=== PATIENT | male | born 1965 | race American Indian/Alaskan Native ===

== ENCOUNTER 2017-03-19 16:44 | Emergency (ER) | payer BC, OTHER ==
[2017-03-19 17:07] VITALS: BP 162/94; PULSE 94; TEMP 98.1; BMI 23.9
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
== END 2017-03-19 18:48 | disposition home or self-care (01) ==
LOC: JER 16:44
DX: M25.552 Pain in left hip (principal); M25.551 Pain in right hip; Z96.641 Presence of right artificial hip joint; V53.5XXA Driver of pick-up truck or van injured in collision with car, pick-up truck or van in traffic accident, initial encounter; Y92.488 Other paved roadways as the place of occurrence of the external cause; Y93.89 Activity, other specified
CPT/HCPCS: 73523-TC; 99281-25

== ENCOUNTER 2020-12-19 13:14 | Emergency (ER) | payer BC ==
[2020-12-19 13:24] VITALS: BP 118/73; PULSE 86; TEMP 97.9; BMI 22.9
[2020-12-19] MEDS ORDERED: ONDANSETRON *ODT* 4 MG TABLET SL ONE (14:23)
[2020-12-19 16:10] LABS: BASO % 0.2 % (0-2.0); HEMATOCRIT 48.1 % (35.4-49); HEMOGLOBIN 16.6 GM/dL (11.7-16.9); LYMPH % 10.3 % (8-40); MCH 31.1 pg (25.7-33.7); MCHC 34.5 g/dl (32.0-35.9); MEAN CELL VOLUME 90.3 fl (80-96); MEAN PLT VOLUME 8.1 fl (7.5-11.1); MONO % 10.3 % (3.8-10.2); NEUT % 79.2 % (42.8-82.8); PLATELET COUNT 203 K/MM3 (134-434); RBC 5.33 M/mm3 (4.00-5.60); RDW 12.8 % (11.9-15.9); WHITE BLOOD COUNT 5.1 K/mm3 (4.0-10.0)
[2020-12-19 16:29] LABS: POTASSIUM 4.1 mmol/L (3.5-5.1)
[2020-12-19 16:31] LABS: CALCIUM 8.8 mg/dL (8.5-10.1)
[2020-12-19 16:32] LABS: BLOOD UREA NITROGEN 14.4 mg/dL (7-18); MAGNESIUM 2.1 mg/dL (1.8-2.4)
[2020-12-19 16:37] LABS: BILIRUBIN,TOTAL 0.4 mg/dL (0.2-1); TOT PROT 8.2 g/dl (6.4-8.2)
== END 2020-12-19 16:16 | disposition home or self-care (01) ==
LOC: JER 13:14
DX: U07.1 COVID-19 (principal)
CPT/HCPCS: 36415; 71046-TC-FY; 80053; 82728; 83615; 83735; 85025; 85379; 85384; 86140; 99284-25

== ENCOUNTER 2020-12-23 16:41 | Inpatient (IN) | payer BC ==
[2020-12-23] MEDS ORDERED: SODIUM CHLORIDE 0.9% 500 ML INFUS.BAG IV ONE (18:09)
[2020-12-23] MEDS ORDERED: DEXAMETHASONE SOD PHOSPHATE 4 MG/1 ML VIAL IVPUSH ONE (18:27)
[2020-12-23] MEDS ORDERED: DEXAMETHASONE SOD PHOSPHATE 4 MG/1 ML VIAL ONE (18:58)
[2020-12-23 19:27] LABS: BASO % 0.2 % (0-2.0); HEMATOCRIT 43.1 % (35.4-49); HEMOGLOBIN 14.8 GM/dL (11.7-16.9); LYMPH % 3.1 % (8-40); MCH 31.3 pg (25.7-33.7); MCHC 34.5 g/dl (32.0-35.9); MEAN CELL VOLUME 90.8 fl (80-96); MEAN PLT VOLUME 8.2 fl (7.5-11.1); MONO % 6.4 % (3.8-10.2); NEUT % 90.3 % (42.8-82.8); PLATELET COUNT 316 K/MM3 (134-434); RBC 4.75 M/mm3 (4.00-5.60); RDW 12.7 % (11.9-15.9); WHITE BLOOD COUNT 6.9 K/mm3 (4.0-10.0)
[2020-12-23 19:44] LABS: CHLORIDE 102 mmol/L (98-107); POTASSIUM 4.4 mmol/L (3.5-5.1); SODIUM 139 mmol/L (136-145)
[2020-12-23 19:46] LABS: ALBUMIN 3.1 g/dl (3.4-5.0); ANION GAP 5 MMOL/L (8-16); CALCIUM 8.3 mg/dL (8.5-10.1); CO2 31 mmol/L (21-32); GLUCOSE,RANDOM 147 mg/dL (74-106)
[2020-12-23 19:49] LABS: BILIRUBIN,DIRECT 0.3 mg/dL (0.0-0.2); CREATININE 0.8 mg/dL (0.55-1.3); SGOT/AST 26 U/L (15-37); SGPT/ALT 79 U/L (13-61)
[2020-12-23 19:51] LABS: BILIRUBIN,TOTAL 0.5 mg/dL (0.2-1); TOT PROT 7.1 g/dl (6.4-8.2)
[2020-12-23 19:52] LABS: ALK PHOS 76 U/L (45-117)
[2020-12-23 20:17] LABS: LDH 319 U/L (87-246)
[2020-12-23 20:50] LABS: VENOUS PCO2 43.8 mmHg (38-52); VENOUS PH 7.485 (7.310-7.410)
[2020-12-23 20:55] LABS: VENOUS BASE EXCESS 5.1 mmol/L (-2-2); VENOUS O2 SATURATION 75.7 % (70-80)
[2020-12-23] MEDS ORDERED: ALBUTEROL SO4 HFA INHALER IH PRN (21:03)
[2020-12-23 23:11] LABS: MAGNESIUM 2.2 mg/dL (1.8-2.4)
[2020-12-24 02:16] VITALS: BMI 21.8
[2020-12-24 06:19] LABS: URINE APPEARANCE CLEAR; URINE BILIRUBIN NEGATIVE (NEGATIVE); URINE COLOR YELLOW; URINE GLUCOSE (UA) NEGATIVE (NEGATIVE); URINE KETONE NEGATIVE (NEGATIVE); URINE LEUK ESTERASE NEGATIVE (NEGATIVE); URINE NITRITE NEGATIVE (NEGATIVE); URINE PROTEIN NEGATIVE (NEGATIVE)
[2020-12-24 08:21] LABS: BASO % 0.1 % (0-2.0); HEMATOCRIT 42.5 % (35.4-49); HEMOGLOBIN 14.7 GM/dL (11.7-16.9); LYMPH % 9.9 % (8-40); MCH 31.1 pg (25.7-33.7); MCHC 34.7 g/dl (32.0-35.9); MEAN CELL VOLUME 89.6 fl (80-96); MEAN PLT VOLUME 8.1 fl (7.5-11.1); MONO % 10.8 % (3.8-10.2); NEUT % 79.2 % (42.8-82.8); PLATELET COUNT 328 K/MM3 (134-434); RBC 4.74 M/mm3 (4.00-5.60); RDW 12.3 % (11.9-15.9); WHITE BLOOD COUNT 4.7 K/mm3 (4.0-10.0)
[2020-12-24 08:51] LABS: POTASSIUM 4.5 mmol/L (3.5-5.1)
[2020-12-24 08:54] LABS: CALCIUM 8.6 mg/dL (8.5-10.1)
[2020-12-24 08:55] LABS: BLOOD UREA NITROGEN 18.3 mg/dL (7-18)
[2020-12-24 08:58] LABS: CREATININE 0.7 mg/dL (0.55-1.3)
[2020-12-24 09:00] LABS: BILIRUBIN,TOTAL 0.7 mg/dL (0.2-1); TOT PROT 6.9 g/dl (6.4-8.2)
[2020-12-24] MEDS: ENOXAPARIN NA (PORCINE) 40 MG/0.4 ML DISP.SYRIN SQ SCH ×2 (09:41→21:20)
[2020-12-24] MEDS: ZINC SULFATE 220 MG CAPSULE (FP) PO SCH (09:41)
[2020-12-24] MEDS: ASCORBIC ACID 500 MG TABLET (FP) PO SCH ×2 (09:41→21:21)
[2020-12-24] MEDS: CHOLECALCIFEROL (VIT D3) 1,000 UNIT (25 MCG) TABLET PO SCH (09:41)
[2020-12-24] MEDS: DEXAMETHASONE SOD PHOSPHATE 4 MG/1 ML VIAL IVPUSH SCH (09:42)
[2020-12-24] MEDS ORDERED: CHOLECALCIFEROL (VIT D3) 1,000 UNIT (25 MCG) TABLET PO SCH (10:00)
[2020-12-24] MEDS ORDERED: ENOXAPARIN NA (PORCINE) 40 MG/0.4 ML DISP.SYRIN SQ SCH (10:00)
[2020-12-24] MEDS: FAMOTIDINE 20 MG TABLET PO SCH (21:21)
[2020-12-25 08:22] LABS: HEMOGLOBIN 15.6 GM/dL (11.7-16.9); MCH 30.8 pg (25.7-33.7); MCHC 34.6 g/dl (32.0-35.9); MEAN CELL VOLUME 88.8 fl (80-96); MEAN PLT VOLUME 8.1 fl (7.5-11.1); PLATELET COUNT 478 K/MM3 (134-434); RBC 5.07 M/mm3 (4.00-5.60); RDW 12.4 % (11.9-15.9); WHITE BLOOD COUNT 10.4 K/mm3 (4.0-10.0)
[2020-12-25 08:38] LABS: ALBUMIN 3.2 g/dl (3.4-5.0); BLOOD UREA NITROGEN 20.3 mg/dL (7-18); CALCIUM 8.7 mg/dL (8.5-10.1); MAGNESIUM 2.2 mg/dL (1.8-2.4); POTASSIUM 4.3 mmol/L (3.5-5.1)
[2020-12-25 08:42] LABS: CREATININE 0.8 mg/dL (0.55-1.3)
[2020-12-25 08:43] LABS: BILIRUBIN,TOTAL 0.7 mg/dL (0.2-1); TOT PROT 7.2 g/dl (6.4-8.2)
[2020-12-25 09:34] LABS: ERYTHROCYTE SEDIMENTATION RATE 67 mm/hr (0-20)
[2020-12-25] MEDS: ASCORBIC ACID 500 MG TABLET (FP) PO SCH ×2 (10:02→21:08)
[2020-12-25] MEDS: ENOXAPARIN NA (PORCINE) 40 MG/0.4 ML DISP.SYRIN SQ SCH ×2 (10:03→21:08)
[2020-12-25] MEDS: ZINC SULFATE 220 MG CAPSULE (FP) PO SCH (10:03)
[2020-12-25] MEDS: CHOLECALCIFEROL (VIT D3) 1,000 UNIT (25 MCG) TABLET PO SCH (10:03)
[2020-12-25] MEDS: DEXAMETHASONE SOD PHOSPHATE 4 MG/1 ML VIAL IVPUSH SCH (10:04)
[2020-12-25] MEDS: FAMOTIDINE 20 MG TABLET PO SCH ×2 (10:04→21:09)
[2020-12-25] MEDS ORDERED: REMDESIVIR 200 MG in SODIUM CHLORIDE 210 ML IVPB ONE (17:00)
[2020-12-26 07:50] LABS: HEMOGLOBIN 14.3 GM/dL (11.7-16.9); MCH 31.7 pg (25.7-33.7); MCHC 35.7 g/dl (32.0-35.9); MEAN CELL VOLUME 88.7 fl (80-96); MEAN PLT VOLUME 8.2 fl (7.5-11.1); PLATELET COUNT 397 K/MM3 (134-434); RDW 12.2 % (11.9-15.9); WHITE BLOOD COUNT 7.5 K/mm3 (4.0-10.0)
[2020-12-26 07:59] LABS: POTASSIUM 4.6 mmol/L (3.5-5.1)
[2020-12-26 08:01] LABS: CALCIUM 8.5 mg/dL (8.5-10.1); MAGNESIUM 2.2 mg/dL (1.8-2.4)
[2020-12-26 08:02] LABS: ALBUMIN 2.8 g/dl (3.4-5.0); BLOOD UREA NITROGEN 19.6 mg/dL (7-18)
[2020-12-26 08:05] LABS: CREATININE 0.7 mg/dL (0.55-1.3); PHOSPHOROUS 3.2 mg/dL (2.5-4.9)
[2020-12-26 08:06] LABS: BILIRUBIN,TOTAL 0.6 mg/dL (0.2-1); TOT PROT 6.2 g/dl (6.4-8.2)
[2020-12-26 08:46] LABS: ERYTHROCYTE SEDIMENTATION RATE 38 mm/hr (0-20)
[2020-12-26] MEDS ORDERED: PT OWN MED DRAWER 7, Y5N ONE (10:01)
[2020-12-26] MEDS: CHOLECALCIFEROL (VIT D3) 1,000 UNIT (25 MCG) TABLET PO SCH (10:08)
[2020-12-26] MEDS: ZINC SULFATE 220 MG CAPSULE (FP) PO SCH (10:08)
[2020-12-26] MEDS: FAMOTIDINE 20 MG TABLET PO SCH ×2 (10:08→22:45)
[2020-12-26] MEDS: ASCORBIC ACID 500 MG TABLET (FP) PO SCH ×2 (10:08→22:44)
[2020-12-26] MEDS: DEXAMETHASONE SOD PHOSPHATE 4 MG/1 ML VIAL IVPUSH SCH (10:08)
[2020-12-26] MEDS: ENOXAPARIN NA (PORCINE) 40 MG/0.4 ML DISP.SYRIN SQ SCH ×2 (10:10→22:45)
[2020-12-26] MEDS: REMDESIVIR 100 MG in SODIUM CHLORIDE 230 ML IVPB SCH (16:47)
[2020-12-27 09:20] LABS: HEMOGLOBIN 14.2 GM/dL (11.7-16.9); MCH 31.1 pg (25.7-33.7); MCHC 34.5 g/dl (32.0-35.9); MEAN PLT VOLUME 7.8 fl (7.5-11.1); PLATELET COUNT 411 K/MM3 (134-434); RBC 4.56 M/mm3 (4.00-5.60); RDW 12.4 % (11.9-15.9); WHITE BLOOD COUNT 7.9 K/mm3 (4.0-10.0)
[2020-12-27] MEDS ORDERED: PT OWN MED DRAWER 7, Y5N ONE (09:53)
[2020-12-27 09:59] LABS: POTASSIUM 4.8 mmol/L (3.5-5.1)
[2020-12-27 10:01] LABS: ALBUMIN 2.9 g/dl (3.4-5.0); BLOOD UREA NITROGEN 20.4 mg/dL (7-18); CALCIUM 8.7 mg/dL (8.5-10.1); MAGNESIUM 2.1 mg/dL (1.8-2.4)
[2020-12-27 10:04] LABS: CREATININE 0.7 mg/dL (0.55-1.3)
[2020-12-27 10:05] LABS: BILIRUBIN,TOTAL 0.5 mg/dL (0.2-1); PHOSPHOROUS 3.1 mg/dL (2.5-4.9); TOT PROT 6.2 g/dl (6.4-8.2)
[2020-12-27] MEDS: ENOXAPARIN NA (PORCINE) 40 MG/0.4 ML DISP.SYRIN SQ SCH ×2 (10:20→22:23)
[2020-12-27] MEDS: DEXAMETHASONE SOD PHOSPHATE 4 MG/1 ML VIAL IVPUSH SCH (10:20)
[2020-12-27] MEDS: ASCORBIC ACID 500 MG TABLET (FP) PO SCH ×2 (10:20→22:23)
[2020-12-27] MEDS: CHOLECALCIFEROL (VIT D3) 1,000 UNIT (25 MCG) TABLET PO SCH (10:20)
[2020-12-27] MEDS: FAMOTIDINE 20 MG TABLET PO SCH ×2 (10:21→22:24)
[2020-12-27] MEDS: ZINC SULFATE 220 MG CAPSULE (FP) PO SCH (10:21)
[2020-12-27 16:13] LABS: URINE APPEARANCE CLEAR; URINE BILIRUBIN NEGATIVE (NEGATIVE); URINE COLOR YELLOW; URINE GLUCOSE (UA) NEGATIVE (NEGATIVE); URINE KETONE NEGATIVE (NEGATIVE); URINE LEUK ESTERASE NEGATIVE (NEGATIVE); URINE NITRITE NEGATIVE (NEGATIVE); URINE PROTEIN NEGATIVE (NEGATIVE); URINE UROBILINOGEN 0.2 mg/dL (0.2-1.0)
[2020-12-27] MEDS: REMDESIVIR 100 MG in SODIUM CHLORIDE 230 ML IVPB SCH (16:15)
[2020-12-27] MEDS ORDERED: MUPIROCIN 2% TOPICAL OINTMENT FOR DECOLONIZATION NS SCH (22:11)
[2020-12-27] MEDS: MUPIROCIN 2% TOPICAL OINTMENT FOR DECOLONIZATION NS SCH (22:24)
[2020-12-27] MEDS ORDERED: MELATONIN 5 MG TABLETS PO ONE (22:49)
[2020-12-27] MEDS ORDERED: SODIUM CHLORIDE FOR INHALATION 3 ML VIAL.NEB IH ONE (23:53)
[2020-12-28] MEDS ORDERED: SODIUM CHLORIDE NASAL SPRAY 44 ML BOTTLE NS ONE (05:25)
[2020-12-28] MEDS: MUPIROCIN 2% TOPICAL OINTMENT FOR DECOLONIZATION NS SCH ×3 (07:33→21:11)
[2020-12-28 08:19] LABS: HEMATOCRIT 40.5 % (35.4-49); MCH 31.2 pg (25.7-33.7); MCHC 34.5 g/dl (32.0-35.9); MEAN CELL VOLUME 90.3 fl (80-96); MEAN PLT VOLUME 8.1 fl (7.5-11.1); PLATELET COUNT 419 K/MM3 (134-434); RBC 4.49 M/mm3 (4.00-5.60); RDW 12.4 % (11.9-15.9)
[2020-12-28 08:42] LABS: POTASSIUM 4.5 mmol/L (3.5-5.1)
[2020-12-28 08:47] LABS: ALBUMIN 2.9 g/dl (3.4-5.0); CALCIUM 8.6 mg/dL (8.5-10.1)
[2020-12-28 08:48] LABS: BLOOD UREA NITROGEN 18.5 mg/dL (7-18)
[2020-12-28 08:50] LABS: CREATININE 0.7 mg/dL (0.55-1.3)
[2020-12-28 08:51] LABS: PHOSPHOROUS 3.9 mg/dL (2.5-4.9)
[2020-12-28 08:52] LABS: BILIRUBIN,TOTAL 0.4 mg/dL (0.2-1); TOT PROT 6.3 g/dl (6.4-8.2)
[2020-12-28] MEDS: ASCORBIC ACID 500 MG TABLET (FP) PO SCH ×2 (10:03→21:12)
[2020-12-28] MEDS: ZINC SULFATE 220 MG CAPSULE (FP) PO SCH (10:03)
[2020-12-28] MEDS: FAMOTIDINE 20 MG TABLET PO SCH ×2 (10:04→21:12)
[2020-12-28] MEDS: ENOXAPARIN NA (PORCINE) 40 MG/0.4 ML DISP.SYRIN SQ SCH ×2 (10:04→21:11)
[2020-12-28] MEDS: CHOLECALCIFEROL (VIT D3) 1,000 UNIT (25 MCG) TABLET PO SCH (10:04)
[2020-12-28] MEDS: DEXAMETHASONE SOD PHOSPHATE 4 MG/1 ML VIAL IVPUSH SCH (10:04)
[2020-12-28 11:10] LABS: ERYTHROCYTE SEDIMENTATION RATE 18 mm/hr (0-20)
[2020-12-28] MEDS: REMDESIVIR 100 MG in SODIUM CHLORIDE 230 ML IVPB SCH (16:45)
[2020-12-29 08:34] LABS: HEMATOCRIT 43.5 % (35.4-49); HEMOGLOBIN 15.3 GM/dL (11.7-16.9); MCH 31.8 pg (25.7-33.7); MCHC 35.1 g/dl (32.0-35.9); MEAN CELL VOLUME 90.6 fl (80-96); MEAN PLT VOLUME 7.8 fl (7.5-11.1); PLATELET COUNT 477 K/MM3 (134-434); RBC 4.81 M/mm3 (4.00-5.60); RDW 12.2 % (11.9-15.9); WHITE BLOOD COUNT 10.6 K/mm3 (4.0-10.0)
[2020-12-29] MEDS: ENOXAPARIN NA (PORCINE) 40 MG/0.4 ML DISP.SYRIN SQ SCH (10:08)
[2020-12-29] MEDS: ZINC SULFATE 220 MG CAPSULE (FP) PO SCH (10:09)
[2020-12-29] MEDS: CHOLECALCIFEROL (VIT D3) 1,000 UNIT (25 MCG) TABLET PO SCH (10:09)
[2020-12-29] MEDS: ASCORBIC ACID 500 MG TABLET (FP) PO SCH (10:09)
[2020-12-29] MEDS: FAMOTIDINE 20 MG TABLET PO SCH (10:09)
[2020-12-29] MEDS: MUPIROCIN 2% TOPICAL OINTMENT FOR DECOLONIZATION NS SCH (10:09)
[2020-12-29] MEDS: DEXAMETHASONE SOD PHOSPHATE 4 MG/1 ML VIAL IVPUSH SCH (10:09)
[2020-12-29 10:34] LABS: ALBUMIN 3.3 g/dl (3.4-5.0); CALCIUM 9.2 mg/dL (8.5-10.1)
[2020-12-29 10:37] LABS: CREATININE 0.9 mg/dL (0.55-1.3)
[2020-12-29 10:38] LABS: BILIRUBIN,TOTAL 0.9 mg/dL (0.2-1)
[2020-12-29 11:42] LABS: BLOOD UREA NITROGEN 20.5 mg/dL (7-18); POTASSIUM 4.2 mmol/L (3.5-5.1)
[2020-12-29 15:16] VITALS: BP 131/69; PULSE 73; TEMP 98.1
[2020-12-29] MEDS: REMDESIVIR 100 MG in SODIUM CHLORIDE 230 ML IVPB SCH ×2 (15:26→17:00)
== END 2020-12-29 19:13 | disposition home or self-care (01) | DRG 177 ==
LOC: JER 16:41 → JERBED 18:11 → J8W 12-24 01:58
PROVIDERS: ADMIT Internal Medicine; ATTEND Internal Medicine
PROC: 8E0ZXY6 Isolation (ICD-10-PCS; 2020-12-23)
PROC: XW033E5 Introduction of Remdesivir Anti-infective into Peripheral Vein, Percutaneous Approach, New Technology Group 5 (ICD-10-PCS; principal; 2020-12-25)
DX: U07.1 COVID-19 (principal); J12.82 Pneumonia due to coronavirus disease 2019; J96.01 Acute respiratory failure with hypoxia; Z96.641 Presence of right artificial hip joint; R43.8 Other disturbances of smell and taste; R35.0 Frequency of micturition; R74.01 Elevation of levels of liver transaminase levels; F41.9 Anxiety disorder, unspecified; B95.62 Methicillin resistant Staphylococcus aureus infection as the cause of diseases classified elsewhere
CPT/HCPCS: 36415; 71045-TC-FY; 80053; 81003; 82248; 82550; 82728; 82803; 83036; 83605; 83615; 83735; 84100; 84484; 85025; 85027; 85379; 85651; 86140; 86769; 87077; 87081; 87086; 87804; 93005; 93010; 94010; 94761; 99285-25; C9399; C9803; U0003

== ENCOUNTER 2022-11-25 07:46 | Emergency (ER) | payer BC ==
[2022-11-25 08:01] VITALS: TEMP 97.8; BMI 23.2
[2022-11-25] MEDS ORDERED: ACETAMINOPHEN 500 MG TABLET (FP) PO ONE (09:09)
[2022-11-25] MEDS ORDERED: LIDOCAINE 5% TOPICAL PATCH TP ONE (09:09)
[2022-11-25] MEDS ORDERED: KETOROLAC TROMETHAMINE 30 MG/1 ML VIAL IM ONE (09:09)
[2022-11-25] MEDS ORDERED: IBUPROFEN 600 MG TABLET (FP) PO ONE (09:15)
[2022-11-25] MEDS ORDERED: IBUPROFEN 400 MG TABLET (FP) PO ONE (09:18)
[2022-11-25] MEDS ORDERED: LIDOCAINE 5% TOPICAL PATCH ONE (09:18)
[2022-11-25] MEDS ORDERED: ACETAMINOPHEN 500 MG TABLET (FP) ONE (09:19)
[2022-11-25 10:17] VITALS: BP 141/77; PULSE 67; RESP 18
[2022-11-25] MEDS ORDERED: LIDOCAINE PATCH REMOVAL MC SCH (22:00)
== END 2022-11-25 10:16 | disposition home or self-care (01) ==
LOC: JER 07:46
DX: M54.50 Low back pain, unspecified (principal)
CPT/HCPCS: 99283-25

== ENCOUNTER 2023-08-26 04:31 | Day surgery (SDC) | payer BC ==
[2023-08-23 10:01] VITALS: BMI 22.9
[2023-08-26 08:53] VITALS: TEMP 97.3
[2023-08-26 09:49] VITALS: BP 156/74; PULSE 60; RESP 20
== END 2023-08-26 09:33 | disposition home or self-care (01) ==
LOC: JASU-ENDO 04:31
PROVIDERS: ATTEND Internal Medicine Gastroenterology
PROC: 0DJD8ZZ Inspection of Lower Intestinal Tract, Via Natural or Artificial Opening Endoscopic (ICD-10-PCS; principal; 2023-08-26 09:00)
DX: Z12.11 Encounter for screening for malignant neoplasm of colon (principal); K64.8 Other hemorrhoids

== ENCOUNTER 2025-04-11 13:21 | Emergency (ER) | payer BC ==
[2025-04-11 13:32] VITALS: BP 129/73; PULSE 85; RESP 20; TEMP 97.9; BMI 23.6
[2025-04-11] MEDS ORDERED: ACETAMINOPHEN 500 MG TABLET (FP) ONE (14:01)
[2025-04-11] MEDS: ACETAMINOPHEN 500 MG TABLET (FP) PO ONE (14:04)
== END 2025-04-11 21:02 | disposition home or self-care (01) ==
LOC: JERFT 13:21
DX: S49.92XA Unspecified injury of left shoulder and upper arm, initial encounter (principal); X50.1XXA Overexertion from prolonged static or awkward postures, initial encounter
CPT/HCPCS: 73030-TC-LT-FY; 73030-TC-RT-FY; 99283-25